=== PATIENT | female | born 1970 | race Caucasian/White ===

== ENCOUNTER 2022-06-09 15:57 | Emergency (ER) | payer OTHER ==
[2022-06-09] MEDS ORDERED: AMOX TR-K CLV1 EAC4 PO (17:18)
== END 2022-06-09 17:28 | disposition home or self-care (01) ==
LOC: FER 15:57
DX: S81.812A Laceration without foreign body, left lower leg, initial encounter (principal); S80.811A Abrasion, right lower leg, initial encounter; I10 Essential (primary) hypertension; J45.909 Unspecified asthma, uncomplicated; W54.0XXA Bitten by dog, initial encounter; Y92.009 Unspecified place in unspecified non-institutional (private) residence as the place of occurrence of the external cause
CPT/HCPCS: 90471; 90715